=== PATIENT | female | born 1955 | race African-American/Black ===

== ENCOUNTER 2021-02-01 07:20 | Emergency (ER) | payer MEDICARE ==
[2021-02-01] MEDS ORDERED: Lisinopril 10 MG TAB ONE (08:42)
[2021-02-01] MEDS ORDERED: Metoprolol Tartrate 25 MG TAB ONE (08:47)
[2021-02-01] MEDS ORDERED: Ketorolac Tromethamine 30 MG/ML VIAL ONE (08:57)
== END 2021-02-01 10:46 | disposition home or self-care (01) ==
LOC: CSHERS 07:20
DX: M62.838 Other muscle spasm (principal); I10 Essential (primary) hypertension; Z79.899 Other long term (current) drug therapy
CPT/HCPCS: 96374; J1885

== ENCOUNTER 2022-07-12 10:30 | Emergency (ER) | payer MEDICARE ==
[2022-07-12 11:37] LABS: SARS-CoV-2 NAA Rapid Test DETECTED (NotDetected)
== END 2022-07-12 11:58 | disposition home or self-care (01) ==
LOC: CSHERS 10:30
DX: U07.1 COVID-19 (principal); I10 Essential (primary) hypertension
CPT/HCPCS: 71045; 99285; U0002